=== PATIENT | female | born 1945 | race American Indian/Alaskan Native ===

== ENCOUNTER 2019-01-02 14:57 | Emergency (ER) | payer MEDICARE, BC ==
[2019-01-02 14:57] VITALS: BMI 29.0
[2019-01-02 15:26] VITALS: TEMP 98.4
--- NOTE | 2019-01-02 17:11 | ED PDOC ---
Arrival/HPI - General Chief Complaint: Lower Extremity Problem/Injury Time Seen by Provider: 01/02/19 15:36 Historian: Patient - History of Present Illness Narrative History of Present Illness (Text): 01/02/19 17:07 73-year-old female presents today with a 3-day history of right sided buttock/hip pain radiating into the right leg and knee. Patient states she was seen by her primary care physician and was given Voltaren cream. Patient states 3 days ago she applied the cream to the entire right thigh and knee. Patient states she then noticed some swelling in the knee. Patient denies back pain. Patient denies chest pain or shortness of breath. Patient denies fevers or chills. No abdominal pain. No urinary symptoms. Patient states the pain radiates from the buttocks along the lateral aspect of the thigh into the knee. Patient denies numbness weakness or tingling in the extremity. No other complaints Past Medical History - Provider Review Nursing Documentation Reviewed: Yes Primary Care Provider: Suyapa De Anda V - Travel History Have you recently traveled outside [place] w/in the past 3 mons?: No - Infectious Disease Hx of Infectious Diseases: None - Reproductive Menopause: Yes - Cardiac Hx Hypertension: Yes - Musculoskeletal/Rheumatological Hx Arthritis: Yes - Psychiatric Hx Depression: No Hx Emotional Abuse: No Hx Physical Abuse: No Hx Substance Use: No - Surgical History Other/Comment: kidney stones removed - Anesthesia Hx Anesthesia: Yes Hx Anesthesia Reactions: No Hx Malignant Hyperthermia: No - Suicidal Assessment Feels Threatened In Home Enviroment: No Family/Social History - Physician Review Nursing Documentation Reviewed: Yes Family/Social History: Unknown Family HX Smoking Status: Never Smoked Hx Alcohol Use: No Hx Substance Use: No Hx Substance Use Treatment: No Allergies/Home Meds Allergies/Adverse Reactions: Allergies No Known Allergies Allergy (Verified 01/02/19 15:26) Home Medications: Home Meds Medication Instructions Recorded Confirmed Amlodipine Bes/Olmesartan Med 1 tab PO DAILY 07/17/12 01/02/19 [Khloe 10 mg-40 mg] Review of Systems - Review of Systems Constitutional: absent: Fatigue, Fevers Respiratory: absent: SOB, Cough Cardiovascular: absent: Chest Pain, Palpitations Gastrointestinal: absent: Abdominal Pain, Diarrhea, Nausea, Vomiting Genitourinary Female: absent: Dysuria, Frequency, Hematuria Musculoskeletal: Arthralgias. absent: Back Pain, Neck Pain Skin: absent: Rash, Pruritis Neurological: absent: Headache, Dizziness Psychiatric: absent: Anxiety, Depression, Suicidal Ideation Physical Exam Vital Signs Reviewed: Yes Vital Signs Temp Resp BP Pulse Ox 01/02/19 15:21 98.4 F 19 191/71 H 98 Temperature: Afebrile Blood Pressure: Hypertensive Pulse: Regular Respiratory Rate: Normal Appearance: Positive for: Well-Appearing, Non-Toxic, Comfortable Pain Distress: None Mental Status: Positive for: Alert and Oriented X 3 - Systems Exam Head: Present: Atraumatic Mouth: Present: Moist Mucous Membranes Neck: Present: Normal Range of Motion Respiratory/Chest: Present: Clear to Auscultation, Good Air Exchange. No: Respiratory Distress, Accessory Muscle Use Cardiovascular: Present: Regular Rate and Rhythm, Normal S1, S2. No: Murmurs Abdomen: No: Tenderness, Distention, Peritoneal Signs, Rebound, Guarding Back: Present: Normal Inspection, Other (+ ttp over right sciatic foramen; ). No: CVA Tenderness, Midline Tenderness, Paraspinal Tenderness Upper Extremity: Present: Normal Inspection Lower Extremity: Present: Normal Inspection, NORMAL PULSES, Normal ROM, Tenderness (right leg; + ttp over right sciatic foramen; + ttp over posterior hip. no tenderness to thigh. + minimal tenderness over the anterior aspect of knee; full rom of hip and knee. sensation and distal pulses intact; no calf tenderness. ), Neurovascularly Intact, Capillary Refill < 2 s. No: CALF TENDERNESS, Swelling, Erythema Neurological: Present: GCS=15, Speech Normal Skin: Present: Warm, Dry, Normal Color. No: Rashes Psychiatric: Present: Alert, Oriented x 3 Medical Decision Making ED Course and Treatment: 01/02/19 17:11 73-year-old female presenting with a 3-day history of right-sided hip and knee pain Patient given Toradol and Valium for pain. X-ray of the right hip: No fracture X-rays of the right knee: No fracture venous duplex of the right leg: No DVT Patient reassessment: pt feeling better after medications. ambulating with steady gait using her cane. All results discussed in depth with the patient. Patient was advised to follow- up with the orthopedist as well as the primary care physician within the next 2 days. Patient was advised to take Motrin every 6 hours as needed for pain and Valium every 8 hours as needed for muscle spasms. Patient was advised to me to return if symptoms worsen persist or if new concerning symptoms develop patient verbalizes understanding of discharge instructions and need for immediat e followup. All aspects of this case were discussed the attending of record. Impression: Motrin every 6 hours as needed for pain Valium 1 tablet every 8 hours as needed for muscle spasms: May cause drowsiness Follow-up with the orthopedist within the next 2 days Follow-up with primary care physician within the next 2 days Return immediately if symptoms worsen persist or if new concerning symptoms develop Reassessment Condition: Re-examined, Improved - RAD Interpretation Radiology Orders: 01/02/19 16:21 Hip Right [HIP MIN 2V W/ PELVIS RT] [RAD] Stat KNEE W PATELLA RIGHT 3 VIEW [RAD] Stat DUPLEX LOWER EXTRM VEIN RIGHT [US] Stat - Medication Orders Current Medication Orders: Discontinued Medications Diazepam (Valium) 2 mg PO ONCE ONE; Protocol Stop: 01/02/19 16:22 Last Admin: 01/02/19 16:41 Dose: 2 mg Ketorolac Tromethamine (Toradol) 15 mg IM STAT STA Stop: 01/02/19 16:22 Last Admin: 01/02/19 16:43 Dose: 15 mg MAR Pain Assessment Document 01/02/19 16:43 BB (Rec: 01/02/19 16:43 BB [id number]) Pain Reassessment Is this a pain reassessment? No Presence of Pain Presence of Pain Yes Pain Scale Used Protocol: PSCALES Pain Scale Used Numeric Location Left, Right or Bilateral Right Pain Location Body Site Knee Description Description Constant Intensity of Pain at present 8 Pain Behavior Grasping Site Rubbing Site Restlessness IM Administration Charges Document 01/02/19 16:43 BB (Rec: 01/02/19 16:43 BB [id number]) Injection Site MAR Injection Site Left Deltoid Charges for Administration # of IM Administrations 1 Disposition/Present on Arrival - Present on Arrival Any Indicators Present on Arrival: No History of DVT/PE: No History of Uncontrolled Diabetes: No Urinary Catheter: No History of Decub. Ulcer: No History Surgical Site Infection Following: None - Disposition Have Diagnosis and Disposition been Completed?: Yes Diagnosis: Hip pain, Knee pain Disposition: HOME/ ROUTINE Disposition Time: 18:27 Patient Plan: Discharge Patient Problems: Current Active Problems Problem Status Onset Hip pain Acute Knee pain Acute Condition: GOOD Discharge Instructions (ExitCare): Hip Pain (DC), Knee Pain (DC) Additional Instructions: Motrin every 6 hours as needed for pain Valium 1 tablet every 8 hours as needed for muscle spasms: May cause drowsiness Follow-up with the orthopedist within the next 2 days Follow-up with primary care physician within the next 2 days Return immediately if symptoms worsen persist or if new concerning symptoms develop Prescriptions: diaZEpam [Valium] 2 mg PO Q8H PRN #6 tab PRN Reason: muscle spasms Ibuprofen [Motrin] 600 mg PO Q6H PRN #20 tab PRN Reason: pain/fever reduction Referrals: Mohinder Valderrama MD [Staff Provider] - Follow up with primary Maya Jansen MD [Staff Provider] - Follow up with primary Suyapa De Anda DO [Doctor Osteopathy] - Follow up with primary Forms: [employer] ([place]ak[employer])
[2019-01-02 17:32] VITALS: BP 148/82; PULSE 66; RESP 18; O2SAT 100
--- NOTE | 2019-01-03 11:07 | RAD ---
PROCEDURE: Right Hip and pelvis radiographs. HISTORY: hip pain COMPARISON: None. TECHNIQUE: 2 views obtained. FINDINGS: BONES: Normal. No fracture. JOINTS: Normal. SOFT TISSUES: Normal. OTHER FINDINGS: None. IMPRESSION: Negative study
--- NOTE | 2019-01-03 11:08 | RAD ---
Date of service: 01/02/2019 PROCEDURE: Right Knee Radiographs. HISTORY: knee pain COMPARISON: None. TECHNIQUE: 3 views obtained. FINDINGS: BONES: Normal. No fracture. JOINTS: Normal. No osteoarthritis. JOINT EFFUSION: None. OTHER FINDINGS: None. IMPRESSION: Normal radiographs of the right knee.
--- NOTE | 2019-01-05 11:11 | US ---
PROCEDURE: Right lower extremity venous US HISTORY: Leg pain and swelling. Evaluate for DVT. PHYSICIAN(S): Sharan Vargas M.D. TECHNIQUE: Duplex sonography and color-flow Doppler with graded compression were used to evaluate the deep venous system of the right lower extremity. FINDINGS: The visualized deep venous system of the right lower extremity is sonographically normal and compressible. Normal waveforms and augmentation are seen. There is no sonographic evidence for deep venous thrombosis in the visualized segments of the right lower extremity. IMPRESSION: 1. No sonographic evidence for deep venous thrombosis in the visualized segments of the right lower extremity.
== END 2019-01-02 18:30 | disposition home or self-care (01) ==
LOC: ED 14:57
DX: M25.551 Pain in right hip (principal); M25.561 Pain in right knee; I10 Essential (primary) hypertension
CPT/HCPCS: 73502; 73562; 93971; 96372; 99283; J1885